=== PATIENT | female | born 1990 | race Caucasian/White ===

== ENCOUNTER 2016-11-21 00:54 | Emergency (ER) | payer MEDICAID, OTHER ==
[~2016-11-21] VITALS: Ht 177.8 cm; Wt 100.0 kg
[~2016-11-21 00:54] MED LIST: IBUP800 PO; ONETAB13 PO; PERC5TAB12 PO; SENN1TAB11 PO
[2016-11-21 01:06] VITALS: BP 157/81; PULSE 118; RESP 14; TEMP 98.4; O2SAT 98
--- NOTE | 2016-11-21 01:25 | PD ---
HPI Chief Complaint: Psychiatric Symptoms Time Seen by Provider: 01:23 Travel History International Travel<30 days: No Contact w/Intl Traveler<30days: No Traveled to known affect area: No History of Present Illness HPI 26-year-old female presents to the emergency Department under Kang act by local police for psychiatric evaluation. According the Kang act, the patient was in a parking lot stating that she did take her stepson to school and was yelling about God. The patient answers all questions appropriately. She is alert and oriented to person, place, time. She states that she was feeling forgot, but will not give me any other details. The patient states something about being on probation and not understanding why she had to give the officer her address. The patient denies any medical complaints this time. She reports no chronic medical problems and takes no prescribed medications. She denies . PFSH Past Medical History Medical History: Denies Significant Hx Diminished Hearing: No ?: Unknown LMP: unk : 2 Para: 1 Past Surgical History Section: Yes (11/2010) Genitourinary Surgery: Yes (BLADDER SURGERY AT AGE 9) Social History Alcohol Use: No Tobacco Use: No Substance Use: No Allergies-Medications (Allergen,Severity, Reaction): Coded Allergies: No Known Allergies (Verified , 11/27/13) Reported Meds & Prescriptions Reported Meds & Active Scripts Active Reported Nara-Colace (Senna/Docusate Sodium) 1 Tab Tab 1 Tab PO BID PRN Motrin 800 Mg Tab (Ibuprofen) 800 Mg Tab 800 Mg PO TID PRN Percocet 5/325 (Oxycodone/Acetaminophen) 5 Mg/325 Mg Tab 1 Tab PO Q6H PRN One Daily For Women (Multiple Vitamins W/ Minerals) Tab 1 Tab PO DAILY Review of Systems Except as stated in HPI: all other systems reviewed are Neg Physical Exam Narrative GENERAL: Well-nourished, well-developed female patient, ambulatory. Afebrile. Patient is alert and oriented to person, place, time. SKIN: Focused skin assessment warm/dry. HEAD: Normocephalic. Atraumatic. EYES: No scleral icterus. No injection or drainage. NECK: Supple, trachea midline. No JVD or lymphadenopathy. CARDIOVASCULAR: Regular rate and rhythm without murmurs, gallops, or rubs. RESPIRATORY: Breath sounds equal bilaterally. No accessory muscle use. Lungs sounds are clear to auscultation. GASTROINTESTINAL: Abdomen soft, non-tender, nondistended. MUSCULOSKELETAL: No cyanosis, or edema. PSYCHIATRIC: No delusional thought processes. No hallucinations. Data Data Last Documented VS Vital Signs Date Time Temp Pulse Resp B/P Pulse Ox O2 Delivery O2 Flow Rate FiO2 11/21/16 01:06 98.4 118 14 157/81 98 Orders Complete Blood Count With Diff (11/21/16:18) Comprehensive Metabolic Panel (11/21/16:18) Ed Urine Pregnancytest Poc (11/21/16:18) Psych Screen (11/21/16:18) Drug Screen, Random Urine (11/21/16:18) Alcohol (Ethanol) (11/21/16:18) Labs Laboratory Tests Test 11/21/16 01:21 White Blood Count 13.5 TH/MM3 Red Blood Count 4.93 MIL/MM3 Hemoglobin 14.6 GM/DL Hematocrit 43.5 % Mean Corpuscular Volume 88.2 FL Mean Corpuscular Hemoglobin 29.7 PG Mean Corpuscular Hemoglobin 33.7 % Concent Red Cell Distribution Width 13.9 % Platelet Count 249 TH/MM3 Mean Platelet Volume 10.1 FL Neutrophils (%) (Auto) 76.7 % Lymphocytes (%) (Auto) 16.5 % Monocytes (%) (Auto) 5.2 % Eosinophils (%) (Auto) 1.2 % Basophils (%) (Auto) 0.4 % Neutrophils # (Auto) 10.3 TH/MM3 Lymphocytes # (Auto) 2.2 TH/MM3 Monocytes # (Auto) 0.7 TH/MM3 Eosinophils # (Auto) 0.2 TH/MM3 Basophils # (Auto) 0.1 TH/MM3 CBC Comment DIFF FINAL Differential Comment Sodium Level 141 MEQ/L Potassium Level 3.1 MEQ/L Chloride Level 108 MEQ/L Carbon Dioxide Level 22.0 MEQ/L Anion Gap 11 MEQ/L Blood Urea Nitrogen 12 MG/DL Creatinine 1.06 MG/DL Estimat Glomerular Filtration 63 ML/MIN Rate Random Glucose 157 MG/DL Calcium Level 9.0 MG/DL Total Bilirubin 0.5 MG/DL Aspartate Amino Transf 14 U/L (AST/SGOT) Alanine Aminotransferase 32 U/L (ALT/SGPT) Alkaline Phosphatase 100 U/L Total Protein 8.3 GM/DL Albumin 4.3 GM/DL Urine Opiates Screen NEG Urine Barbiturates Screen NEG Urine Amphetamines Screen NEG Urine Benzodiazepines Screen NEG Urine Cocaine Screen NEG Urine Cannabinoids Screen POS Ethyl Alcohol Level LESS THAN 3 MG/DL MDM Medical Decision Making Medical Screen Exam Complete: Yes Emergency Medical Condition: Yes Medical Record Reviewed: Yes Differential Diagnosis Depression versus anxiety versus bipolar disorder versus psychosis versus substance abuse Narrative Course 26-year-old female presents to the emergency Department under Kang act by local police for psychiatric evaluation. CBC, CMP, alcohol level, urine drug screen, urine test are ordered and pending. CBC shows leukocytosis 13.5. CMP shows hypokalemia at 3.1, creatinine 1.06, glucose 157. Alcohol level is less than 3. Urine drug screen is positive for cannabinoids. Urine test is negative. Patient is medically cleared for psychiatric screening and disposition. Diagnosis Primary Impression: Psychiatric illness Additional Instructions: Patient is medically cleared for psychiatric screening and disposition. Condition: Stable Neida Ballard November 21, 2016 01:25
[2016-11-21 01:38] LABS: AMPHETAMINE, URINE NEG (NEG); BARBITURATES, URINE NEG (NEG); COCAINE, URINE NEG (NEG)
[2016-11-21 01:39] LABS: AUTOMATED NEUTROPHIL # 10.3 TH/MM3 (1.8-7.7); BASOPHIL # 0.1 TH/MM3 (0-0.2); BASOPHIL % 0.4 % (0.0-2.0); EOSINOPHIL # 0.2 TH/MM3 (0-0.4); EOSINOPHIL % 1.2 % (0.0-4.0); HEMATOCRIT 43.5 % (35.0-46.0); HEMO FLAGS DIFF FINAL; LYMPH % 16.5 % (9.0-44.0); LYMPHOCYTE # 2.2 TH/MM3 (1.0-4.8); MEAN CELL VOLUME 88.2 FL (80.0-100.0); MEAN CORPUSCULAR HEMOGLOBIN 29.7 PG (27.0-34.0); MEAN CORPUSCULAR HGB CONC 33.7 % (32.0-36.0); MONO % 5.2 % (0.0-8.0); NEUT % 76.7 % (16.0-70.0); PLATELET COUNT 249 TH/MM3 (150-450); RED BLOOD COUNT 4.93 MIL/MM3 (4.00-5.30); RED CELL DISTRIBUTION WIDTH 13.9 % (11.6-17.2); WHITE BLOOD COUNT 13.5 TH/MM3 (4.0-11.0)
[2016-11-21 01:52] LABS: ALT (GPT) 32 U/L (10-53); ANION GAP 11 MEQ/L (5-15); AST (GOT) 14 U/L (15-37); BLOOD UREA NITROGEN 12 MG/DL (7-18); CHLORIDE 108 MEQ/L (98-107); GLOMERULAR FILTRATION RATE 63 ML/MIN (>89); POTASSIUM 3.1 MEQ/L (3.5-5.1); SODIUM (NA) 141 MEQ/L (136-145)
[2016-11-21 01:53] LABS: ALKALINE PHOSPHATASE 100 U/L (45-117); TOTAL BILIRUBIN ADULT 0.5 MG/DL (0.2-1.0)
[2016-11-21] MEDS ORDERED: POTASSIUM CHLORIDE 20 MEQ CONTROLLED RELEASE TAB PO ONE (02:15)
[2016-11-21 03:30] VITALS: BP 128/78; PULSE 88; RESP 16; O2SAT 98
[2016-11-21 06:19] VITALS: BP 122/68; PULSE 72; RESP 18; O2SAT 97
[2016-11-21] MEDS ORDERED: HALOPERIDOL LACTATE 5 MG/ML AMP IM ONE (08:15)
[2016-11-21] MEDS ORDERED: LORazepam 2 MG/ML VIAL IM ONE (08:15)
[2016-11-21] MEDS ORDERED: PERC5TAB12 PO (10:36)
[2016-11-21] MEDS ORDERED: IBUP800T23 PO (10:36)
[2016-11-21] MEDS ORDERED: SENN1TAB PO (10:36)
[2016-11-21] MEDS ORDERED: ONETAB13 PO (10:36)
[2016-11-21 11:30] VITALS: BP 121/80; PULSE 76; RESP 18; TEMP 97.8; O2SAT 99
--- NOTE | 2016-11-21 16:11 | PD ---
History of Present Illness Chief Complaint: Psychiatric Symptoms Time Seen by Provider: 15:15 Travel History International Travel<30 Days: No Contact w/Intl Traveler<30days: No Known affected area: No Legal Status Legal Status: Kang Act Kang Act Signed By: Juana Ceja History of Present Illness: History of Present Illness HPI 26-year-old female with no psychiatric history who presents to the emergency Department under Kang act initiated by by local police. According the Kang act, the patient was in a parking lot of a bank yelling at her stepson. She then began yelling at officers that she was God and that she needs to go to [place] on Wednesday. She wanted to touch a lamppost calling it "the light" and stated again that she was God and demanded truthful answers. EMR is reviewed and this is her first contact with [facility] [place] psychiatry dept. Toxicology is negative and she denies any use of substances. Patient was monitored in J pod and she did not present any behavioral concerns and no suicidality. She is alert, oriented, engaging and cooperative. She is maintaining basic hygiene. Her speech is clear and logical. There is no indication that she is responding to internal stimuli and she denies hallucinations. I can elicit no paranoia or any other delusions. She denies any suicidal or homicidal ideation, intent or plan. Patient denies that she said she was God and that she had said " I am a messenger of God and I was exercising my right to practice my samaritan. I also told the officer that I was going to [place] on Wednesday". . PFSH Past Medical History Medical History: Denies Significant Hx Diminished Hearing: No ?: Unknown LMP: unk : 2 Para: 1 Past Surgical History Section: Yes (11/2010) Genitourinary Surgery: Yes (BLADDER SURGERY AT AGE 9) Psychiatric History Psychiatric History Hx Psychiatric Treatment: Pt denied History of Inpatient Treatment: No Guns or firearms in home: No Social History female that lives with her and her stepson. Hx Alcohol Use: No Hx Tobacco Use: No Hx Substance Use: No Hx of Substance Use Treatment: No Family Psychiatric History Mother with unknown psychiatric illness Allergies-Medications (Allergen,Severity, Reaction): Coded Allergies: No Known Allergies (Verified , 11/27/13) Reported Meds & Prescriptions Reported Meds & Active Scripts Active Reported Percocet (Oxycodone-Acetaminophen) 5-325 mg Tab 1 Tab PO Q6H PRN One Daily For Women (Multiple Vitamins W/ Minerals) 1 Tab Tab 1 Tab PO DAILY Ibuprofen 800 Mg Tab 800 Mg PO TID PRN Senna Plus 8.6-50 mg (Sennosides-Docusate Sodium) 1 Tab Tab 1 Tab PO BID PRN Review of Systems Except as stated in HPI: all other systems reviewed are Neg Exam Alert: Yes [place]: Person (ox4) Mood: Calm Affect: Appropriate Speech: Clear, Logical Eye Contact: Normal Memory Intact: Comment (no impairmetn) Hallucinations: Other (negative) Delusions: No Suicidal: Ideation (denies any) Homicidal: Ideation (deneis any) Insight/Judgement Poor. nt impaired. MDM Medical Decision Making Medical Record Reviewed: Yes Assessment/Plan 26 year old female with no previous psychiatric history who presents under a BA. At this time the patient does not present any psychosis and no baudilio. No acute psychiatric symptomatology. No suicidal or homicidal ideation, intent or plan. She is religiously preoccupied but at this time does not present a risk to self or others. At this time she does not meet criteria for BA and is requesting discharge. I have not identified any criteria to hold her here against her will She will be discharged after the BA is lifted. Orders Complete Blood Count With Diff (11/21/16 01:18) Comprehensive Metabolic Panel (11/21/16 01:18) Ed Urine Pregnancytest Poc (11/21/16 01:18) Psych Screen (11/21/16 01:18) Drug Screen, Random Urine (11/21/16 01:18) Alcohol (Ethanol) (11/21/16 01:18) Potassium Chloride (Kcl) (11/21/16 02:15) Lorazepam Inj (Ativan Inj) (11/21/16 08:15) Haloperidol Inj (Haldol Inj) (11/21/16 08:15) Diet Regular Basic (11/21/16 Lunch) Results Vital Signs Date Time Temp Pulse Resp B/P Pulse Ox O2 Delivery O2 Flow Rate FiO2 11/21/16 11:30 97.8 76 18 121/80 99 Room Air 11/21/16 06:19 72 18 122/68 97 Room Air 11/21/16 03:30 88 16 128/78 98 Room Air 11/21/16 01:06 98.4 118 14 157/81 98 Laboratory Tests Test 11/21/16 01:21 White Blood Count 13.5 Red Blood Count 4.93 Hemoglobin 14.6 Hematocrit 43.5 Mean Corpuscular Volume 88.2 Mean Corpuscular Hemoglobin 29.7 Mean Corpuscular Hemoglobin 33.7 Concent Red Cell Distribution Width 13.9 Platelet Count 249 Mean Platelet Volume 10.1 Neutrophils (%) (Auto) 76.7 Lymphocytes (%) (Auto) 16.5 Monocytes (%) (Auto) 5.2 Eosinophils (%) (Auto) 1.2 Basophils (%) (Auto) 0.4 Neutrophils # (Auto) 10.3 Lymphocytes # (Auto) 2.2 Monocytes # (Auto) 0.7 Eosinophils # (Auto) 0.2 Basophils # (Auto) 0.1 CBC Comment DIFF FINAL Differential Comment Sodium Level 141 Potassium Level 3.1 Chloride Level 108 Carbon Dioxide Level 22.0 Anion Gap 11 Blood Urea Nitrogen 12 Creatinine 1.06 Estimat Glomerular Filtration 63 Rate Random Glucose 157 Calcium Level 9.0 Total Bilirubin 0.5 Aspartate Amino Transf 14 (AST/SGOT) Alanine Aminotransferase 32 (ALT/SGPT) Alkaline Phosphatase 100 Total Protein 8.3 Albumin 4.3 Urine Opiates Screen NEG Urine Barbiturates Screen NEG Urine Amphetamines Screen NEG Urine Benzodiazepines Screen NEG Urine Cocaine Screen NEG Urine Cannabinoids Screen POS Ethyl Alcohol Level LESS THAN 3 Diagnosis Primary Impression: adjustment disorder Psychiatrically Cleared: Yes Referrals: ACT (Out patient) call for appointment Departure Forms: Tests/Procedures Patient Instructions: General Instructions, Stress (ED) Additional Instructions: Patient is medically cleared for psychiatric screening and disposition. Med/ Other Pt Specific Info: No Meds Exist/No RX given Disposition: 01 DISCHARGE HOME Condition: Stable Dannielle Thorne UZMA November 21, 2016 16:11
== END 2016-11-21 18:10 | disposition home or self-care (01) ==
LOC: NEPD 00:54 → NEPJ 18:10
DX: F43.20 Adjustment disorder, unspecified (principal); D72.829 Elevated white blood cell count, unspecified; E87.6 Hypokalemia
CPT/HCPCS: 80053; 80307; 84703; 85025; 96372; 99284; J1630; J2060

== ENCOUNTER 2017-09-29 18:54 | Emergency (ER) | payer SELFPAY ==
[~2017-09-29 18:54] MED LIST changes: +IBUP1TAB7 PO; -IBUP800 PO; +SENN1TAB PO; -SENN1TAB11 PO
== END 2017-09-29 21:02 | disposition left against medical advice (07) ==
LOC: NED 18:54
DX: N23 Unspecified renal colic (principal)
CPT/HCPCS: 99281